=== PATIENT | female | born 1995 | race Caucasian/White ===

== ENCOUNTER 2024-11-22 12:08 | Inpatient (IN) ==
--- NOTE | 2024-11-22 13:32 | Emergency Department Note ---
Impression & Plan Paranoia, Acute anxiety, Hearing voices ED Provider Note NAME: DARWIN ORTEZ AGE: 29 SEX: F : 1995 ARRIVES VIA: Walk-In INFORMANT: Patient, ED PROVIDER(S): Jenn Dumont MD CHIEF COMPLAINT: Anxiety, paranoia HPI: This is a 29-year-old female presenting for anxiety and paranoia. Patient states that she has been paranoid for some time. She states she does not feel normal. Recently she feels unsafe. She refused to eat or drink if someone else is given it to her. She reports after the bars and blacking out about 2 weeks ago. She notes no persistent alcohol use. She does endorse daily marijuana use since age of 15. She states she smokes high concentration THC. Her mother is with her and states that today she was hearing voices. She almost took her younger sibling, 4 years old, in the car. Family concerned that patient is unsafe at home. Patient herself does not feel safe. She feels very paranoid with everything and everyone. ROS: See above HPI for pertinent positives & negatives. A total of 10 systems reviewed and were otherwise negative. PAST MEDICAL HISTORY: See Below PAST SURGICAL HISTORY: See Below FAMILY HISTORY: See Below SOCIAL HISTORY: See Below HOME MEDICATIONS: See Below ALLERGIES: See Below VITALS: See Below PHYSICAL EXAMINATION: General: Anxious appearing Head: Normocephalic and atraumatic Eyes: Normal inspection, extraocular muscles intact Ear, nose, throat: Normal external exam Neck: Normal range of motion Respiratory: speaking in full sentences, symmetric chest rise, no respiratory distress Cardiovascular: Regular rate/rhythm Extremities: moves all extremities Neuro: The patient awake and alert, appropriately conversive, symmetric faces, no focal deficits Psych: Clear linear thought process, paranoia, emotionally labile MEDICAL DECISION MAKING: This is a 29-year-old female sent for anxiety/paranoia. Patient does exhibit signs of paranoia, she is now hearing voices/screaming. She states she is scared. She wants inpatient treatment. She has no SI or HI at this time. She does smoke marijuana daily for multiple years. Could contribute to paranoia and or schizophrenia risk - Bloodwork is reviewed showing no significant leukocytosis, anemia, electrolyte or creatinine abnormality -Urinalysis does not resemble UTI -Patient currently being referred to psychiatric unit here. -Patient care sent oncoming physician, Dr. Davis pending bed search Differential diagnosis: Paranoia, schizophrenia, marijuana use disorder, bipolar disorder Independent History obtained from: Mother Diagnostics interpreted by me: ECG: None Cardiac Monitoring: An order was placed for continuous cardiac monitoring. The monitor shows a rate of 64 with sinus rhythm. Past Med/Surg History Problem List (Updated 11/22/24 @ 15:30 by Jenn Dumont MD) Hearing voices (Acute) Acute anxiety (Acute) Paranoia (Acute) Social History Smoking Status: Never smoker Feels Safe at Home: Yes Gender Identity: Female Results & Data (ED) Vital Signs Vital Signs - 24 hr 11/22/24 12:10 11/22/24 14:39 Temperature 36.7 C Temperature Source Temporal Artery Scan Pulse Rate 94 H Pulse Rate [Finger] 64 Respiratory Rate 20 18 Respiratory Effort / Characteristics Non-Labored Spontaneous Non-Labored Spontaneous Respiratory Depth Normal Normal Respiratory Pattern Regular Blood Pressure 127/86 Blood Pressure [Right Arm] 108/75 Blood Pressure Mean 99 Blood Pressure Mean [Right Arm] 86 Pulse Oximetry 99 98 Oxygen Delivery Method Room Air Room Air Sepsis Recent Fever Within 48 Hours No Sepsis New/Unexplained Change in Mental Status N/A Sepsis Action Taken by Nursing No Action Required Laboratory Data 11/22/24 13:11 11/22/24 13:11 Lab Results 11/22/24 Range/Units 13:11 WBC 7.74 (4.8-10.8) K/ul RBC 4.38 (4.20-5.40) M/uL Hgb 12.6 (12.0-16.0) g/dl Hct 38.0 (37.0-47.0) % MCV 86.8 (80.0-100.0) fL MCH 28.8 (25.0-34.0) pg MCHC 33.2 (32.0-36.0) g/dL RDW Std Deviation 45.8 (36.4-46.3) fL RDW Coeff of Gloria 14.4 (11.5-14.5) % Plt Count 394 (130-400) K/uL MPV 10.0 (9.4-12.4) fL Immature Gran % (Auto) 0.4 % Neut % (Auto) 69.8 % Lymph % (Auto) 20.3 % [place] % (Auto) 8.4 % Eos % (Auto) 0.3 % Baso % (Auto) 0.8 % Neut # (Auto) 5.41 (1.40-6.50) K/uL Lymph # (Auto) 1.57 (1.20-3.40) K/uL [place] # (Auto) 0.65 H (0.11-0.59) K/uL Eos # (Auto) 0.02 (0.00-0.50) K/uL Baso # (Auto) 0.06 (0.00-0.20) K/uL Immature Gran # (Auto) 0.03 (0.01-0.20) K/uL Sodium 140 (136-145) mmol/L Potassium 3.7 (3.5-5.1) mmol/L Chloride 106 (98-107) mmol/L Carbon Dioxide 23 (21-32) mmol/L Anion Gap 11 (3-11) BUN 11 (6-23) mg/dl Creatinine 0.72 (0.6-1.2) mg/dl Est Cr Clr Drug Dosing 74.4 ml/min eGFR 116.72 BUN/Creatinine Ratio 15.3 (10-20) Glucose 77 (70-99(Fasting)) mg/dl Calcium 9.8 (8.6-10.3) mg/dl Total Bilirubin 0.8 (0.2-1.0) mg/dl AST 13 (13-39) U/L ALT 7 (7-52) U/L Alkaline Phosphatase 23 L (34-104) U/L Total Protein 7.9 (6.0-8.3) gm/dl Albumin 4.7 (3.4-5.0) gm/dl Globulin 3.2 (2.5-4.0) gm/dl Albumin/Globulin Ratio 1.5 (0.9-2) TSH 1.158 (0.300-4.500) uIu/ml Urine Color Dark Yellow Urine Appearance Clear (Clear) Urine pH 6.0 (4.5-7.5) Ur Specific [place] 1.037 H (1.000-1.030) Urine Protein 1+ H (Negative) Urine Glucose (UA) Negative (Negative) Urine Ketones 4+ H (Negative) Urine Blood Negative (Negative) Urine Nitrite Negative (Negative) Urine Bilirubin Negative (Negative) Urine Urobilinogen Negative (Negative) Ur Leukocyte Esterase Negative (Negative) Urine WBC (Auto) 0-5 (0-5) /hpf Urine RBC (Auto) 0-2 (0-2) /hpf U Hyaline Cast (Auto) 3-5 H (0-2) /lpf U Epithel Cells (Auto) 3-5 H (0-2) /hpf Urine Bacteria (Auto) None Seen (None Seen) Urine Mucus Present A (None Prsent) Urine Test Negative (Negative) Salicylates < 3.0 L (3.0-30) mg/dl Urine Opiates Screen Neg (Neg) Ur Methadone, Qual Neg (Neg) Urine Fentanyl Screen Neg (Neg) Acetaminophen < 3 L (10-30) ug/ml Urine Barbiturates Neg (Neg) Ur Phencyclidine (PCP) Neg (Neg) U Amphetamin/Meth Scrn Neg (Neg) MDMA (Ecstasy) Screen Neg (Neg) U Benzodiazepines Scrn Neg (Neg) Ur Cocaine Metabolite Neg (Neg) U Marijuana (THC) Screen Pos H (Neg) Ethyl Alcohol mg/dL < 10.0 (<10.0) mg/dl SARS-CoV-2, RNA, NAAT NEGATIVE (NEGATIVE) Administered Medications Nicotine (Nicotine 21 Mg/24 Hr Tdsy) 1 patch TD QAM AURELIO Stop: 12/22/24 14:29 Last Admin: 11/22/24 14:38 Dose: 1 patch Documented By: CAP Discharge Plan Visit Data Chief Complaint: Anxiety Stated Complaint: PSYCH ED Provider: Jenn Dumont Discharge Problem: Paranoia, Acute anxiety, Hearing voices Condition: Fair Forms Stand Alone Forms: My [facility], Suicide Prevention Resources Referrals Referrals: PCP,NO [Primary Care Provider] -
[2024-11-22 13:38] LABS: Basophils # (auto) 0.06 K/uL (0.00-0.20); Basophils % (auto) 0.8 %; Eosinophils # (auto) 0.02 K/uL (0.00-0.50); Eosinophils % (auto) 0.3 %; Hemoglobin 12.6 g/dl (12.0-16.0); Immature Granulocytes # (auto) 0.03 K/uL (0.01-0.20); Immature Granulocytes % (auto) 0.4 %; Lymphocytes # (auto) 1.57 K/uL (1.20-3.40); Lymphocytes % (auto) 20.3 %; Mean Corpuscular Hemoglobin 28.8 pg (25.0-34.0); Mean Corpuscular Hgb Conc 33.2 g/dL (32.0-36.0); Mean Corpuscular Volume 86.8 fL (80.0-100.0); Monocytes # (auto) 0.65 K/uL (0.11-0.59); Monocytes % (auto) 8.4 %; Neutrophils # (auto) 5.41 K/uL (1.40-6.50); Neutrophils % (auto) 69.8 %; Platelet Count 394 K/uL (130-400); RDW Coefficient of Variation 14.4 % (11.5-14.5); RDW Standard Deviation 45.8 fL (36.4-46.3); Red Blood Count 4.38 M/uL (4.20-5.40); White Blood Count 7.74 K/ul (4.8-10.8)
[2024-11-22 13:51] LABS: Acetaminophen < 3 ug/ml (10-30); Salicylate < 3.0 mg/dl (3.0-30)
[2024-11-22 14:03] LABS: Albumin Globulin Ratio 1.5 (0.9-2); Albumin Level 4.7 gm/dl (3.4-5.0); BUN Creatinine Ratio 15.3 (10-20); Bilirubin,Total 0.8 mg/dl (0.2-1.0); Calcium 9.8 mg/dl (8.6-10.3); Creatinine Clr Calc Pharmacy 74.4 ml/min; Globulin 3.2 gm/dl (2.5-4.0); Potassium 3.7 mmol/L (3.5-5.1); Total Protein 7.9 gm/dl (6.0-8.3)
[2024-11-22 14:09] LABS: Appearance Urine Clear (Clear); Bacteria Urine Automated None Seen (None Seen); Bilirubin Urine Negative (Negative); Blood Urine Negative (Negative); Color Urine Dark Yellow; Glucose Urine UA Negative (Negative); Ketones Urine 4+ (Negative); Leukocyte Esterase Urine Negative (Negative); Mucus Urine Present (None Prsent); Nitrite Urine Negative (Negative); Protein Urine 1+ (Negative); RBC Urine Automated 0-2 /hpf (0-2); Specific Gravity Urine 1.037 (1.000-1.030); Urobilinogen Urine Negative (Negative); WBC Urine Automated 0-5 /hpf (0-5)
[2024-11-22 14:19] LABS: Thyroid Stimulating Hormone 1.158 uIu/ml (0.300-4.500)
[2024-11-22 14:26] LABS: Amphetamines+Metham, Urine Neg (Neg); Barbiturates, Urine Neg (Neg); Benzodiazepine, Urine Neg (Neg); Cocaine, Urine Neg (Neg); Fentanyl, Urine Neg (Neg); MDMA (Ecstacy), Urine Neg (Neg); Marijuana, Urine Pos (Neg); Methadone, Urine Neg (Neg); Opiate, Urine Neg (Neg); Phencyclidine, Urine Neg (Neg)
[2024-11-22] MEDS: NICOTINE 21 MG/24 HR TDSY TD SCH (14:38)
[2024-11-22 14:55] LABS: Pregnancy Test, Urine Negative (Negative)
[2024-11-22] MEDS ORDERED: SODIUM CHLORIDE 0.65% NA SOLN 45 ML (OCEAN) PRN (15:50)
[2024-11-22] MEDS ORDERED: hydrOXYzine HCl 25 MG TAB PO PRN (15:50)
[2024-11-22] MEDS ORDERED: NICOTINE POLACRILEX 2 MG GUM MT PRN (15:50)
[2024-11-22] MEDS ORDERED: MAGNESIUM HYDROXIDE SUSP 30 ML UDC PO PRN (15:50)
[2024-11-22] MEDS ORDERED: ALUMINUM/MAGNESIUM SUSP 30 ML UDC PO PRN (15:50)
[2024-11-22] MEDS ORDERED: ACETAMINOPHEN 325 MG TAB PO PRN (15:50)
[2024-11-22] MEDS ORDERED: BISMUTH SUBSALICYLATE 262 MG CHEW PO PRN (15:50)
--- NOTE | 2024-11-22 16:06 | Emergency Department Note ---
ED Visit Note 1515: Signout from Dr. Dumont. 29-year-old female 201 paranoid hearing voices marijuana abuse. Awaiting psychiatric evaluation and placement. 1606: Patient excepted to 3 S. .
[2024-11-22] MEDS ORDERED: OLANZAPINE 2.5 MG TAB PO PRN (16:56)
[2024-11-22] MEDS: OLANZapine 5 MG TABLET PO SCH (21:10)
[2024-11-23] MEDS: hydrOXYzine HCl 25 MG TAB PO PRN (06:44)
[2024-11-23] MEDS: NICOTINE 14 MG/24 HR PATCH TD SCH (08:23)
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
[2024-11-23] MEDS: SERTRALINE HCL 50 MG TABLET PO SCH (11:58)
[2024-11-23] MEDS: NICOTINE 7 MG/24 HR TDSY TD SCH (14:32)
[2024-11-23] MEDS: OLANZapine 10 MG TAB PO SCH (20:50)
[2024-11-24 07:31] LABS: Chol HDL Ratio 3.2 (0-5)
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
[2024-11-24 09:21] LABS: Estimated Average Glucose 100 mg/dl; Hemoglobin A1C 5.1 % (4.5-5.6)
[2024-11-24] MEDS: OLANZapine 5 MG TABLET PO SCH (20:33)
[2024-11-25] MEDS: CHOLECALCIFEROL 25 MCG (1000 UNITS) TAB PO SCH (08:38)
--- NOTE | 2024-11-25 08:59 | Psychiatric Progress Note ---
Date of Service November 25, 2024 Impression / Recommendations Impression Diagnostically consistent with unspecified psychosis with differential including acute trauma response/PTSD with psychotic features, severe insomnia, generalized anxiety disorder and substance use/substance-induced from cannabis in the context of multiple traumatic experiences. Anila or mixed mood episode was considered given her poor sleep and report of impulsively moving across the country or between locations however this seems to be driven by paranoia and there are no other noted symptoms consistent with anila nor is her presentation today consistent with a anila or mixed episode. Cannabis use certainly could be a contributing factor though sounds like some of the symptoms were present even before her cannabis use increased. She signed a 72 hour notice which expires 11/27 @1110. A: Significant improvement today after taking olanzapine last evening, timing and quick response to medications suggest of trauma vs substance-induced symptoms. No evidence for paranoia today, did yoga with a peer and eating more food. 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 She signed a 72 hour notice and does not meet 302 criteria so plan for discharge tomorrow after support meeting and once aftercare has been established. She is agreeable with this. Motivational interviewing done regarding her cannabis use, she is motivated to avoid use after discharge. MNPR due to recent paranoia and psychosis, especially at night, and need to promote sleep by minimizing nighttime disruptions Overall, I spent a total of 40 minutes on this case including meeting with the patient, reviewing the chart, nursing report, multidisciplinary team meeting, orders, and documentation. (1) Unspecified psychosis not due to a substance or known physiological condition: (2) Paranoia: (3) Acute anxiety: (4) Cannabis use disorder, moderate, dependence: (5) Acute stress reaction: (6) Post traumatic stress disorder (PTSD): (7) Trauma and stressor-related disorder: Plan 11/25/2024: -Continue current medications and tx plan 11/24/2024: -Decrease olanzapine to 5mg HS to encourage adherence -Start Vit D supplementation 11/23/2024: The patient was admitted to the [facility]) on q15 min checks (behavioral with suicide precautions) for safety. The patient will participate in group, recreational, and milieu therapies and will be offere d additional individual and family sessions as clinically appropriate. -increase to olanzapine 10mg HS -start sertraline 50mg daily -fasting lipid panel and HbA1c, Vit D -STD testing: RPR, HIV and Urine G/C testing -SW to assist with disposition planning: psychiatry, Magician/Illusionist, and therapy and CM referrals Inventory Assets Strengths: supportive relationships, willing to get treatment Needs: safety and stabilization, medication adjustment, additional coping skills, increased outpatient services Suicide Risk Level Suicide Risk Level: Low (q15 min observation checks) (denies SI and future- oriented, feels safe ) Risk Factors Assessment Male: No : Yes Do You Have Access To A Gun?: No Health Problems: No Mental Health Diagnoses: Yes Substance Use Disorders: Yes Previous Attempt: No Family History of Suicide: No Previous Psychiatric Hospitalization: No Hopelessness: No Protective Factors Assessment Employed: No Stable Relationships: Yes Supportive Family: Yes Interval History Identifying Information DARWIN ORTEZ is a 29-year-old woman who currently lives in [place] with her mother and step-father, has a history of depression and anxiety, and was admitted on 11/22/24 15:50 on a 201 voluntary commitment for increased paranoia and psychosis with poor intake and weight loss. Chief Complaint "I feel better on the medicine". Review of Systems Sleep Information Total Hours of Sleep: 6.5 Meal Information Percent Meal Consumed - Breakfast: 100 Percent Meal Consumed - Lunch: 25 Percent Meal Consumed - Dinner: 25 Nutrition Comment: Subjective Subjective Patient was seen & assessed and interval progress reviewed with nursing and social work. Attended groups, did take olanzapine last evening. She did eventually sign an USHA for her mother. She signed a 72 hour notice which expires 11/27 @1110. Today ate most of her breakfast. Has been active on the unit and attending groups. Tells me she feels the olanzapine does help and that she feels a lot "calmer" on it and slept well last night without any nightmares. She is motivated to stop using cannabis moving forward plans to not restart this. Validated this choice. 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 Denies any medication side effects, continues to prefer to stay at low dose of olanzapine. Physical Exam Psychiatric Orientation: alert and oriented x 3 Apperance: appropriately dressed and appropriately groomed Eye Contact: good eye contact Motor Behavior: no abnormal motor movements Speech: normal rate/rhythm/volume of speech Affect: + anxious affect Mood: + anxious mood Thought Process: goal directed thought process Thought Content: reality based without delusions Suicidal Thoughts: denies suicidal thoughts, denies suicidal plan and denies suicidal intent Homicidal Thoughts: denies homicidal thoughts Hallucinations: no auditory hallucinations and no visual hallucinations Cognition: recent memory grossly intact, remote memory grossly intact, attention grossly intact and language grossly intact Estimated Intelligence: consistent with education level Insight: + fair insight Judgment: + fair judgement Vital Signs (Past 24 Hours) Last Vital Signs Temp 36.7 C 11/25/24 06:38 Pulse 81 11/25/24 06:38 Resp 20 11/25/24 06:38 BP 119/83 11/25/24 06:38 Pulse Ox 97 11/25/24 06:38 O2 Del Method Room Air 11/25/24 06:38 Results & Data ([facility]) Laboratory Results Laboratory Results - last 24 hr 11/23/24 11/24/24 Unknown 06:45 Estimat Average Glucose 100 Hemoglobin A1c 5.1 Treponema pallidum Ab Negative N.gonorrhoeae RNA Not Detected Current Inpatient Medications Current Inpatient Medications: Current Inpatient Medications Acetaminophen (Acetaminophen 325 Mg Tab) 650 mg PO Q4H PRN PRN Reason: Headache or Minor Fever Stop: 12/22/24 15:49 Al Hydrox/Mg Hydrox/Simethicone (Aluminum/Magnesium Susp 30 Ml Udc) 30 ml PO Q4H PRN PRN Reason: GI Upset Stop: 12/22/24 15:49 Bismuth Subsalicylate (Bismuth Subsalicylate 262 Mg Chew) 2 tab PO Q30M PRN PRN Reason: Loose Stool/Diarrhea Stop: 12/22/24 15:49 Hydroxyzine HCl (Hydroxyzine Hcl 25 Mg Tab) 50 mg PO HSZ PRN PRN Reason: Insomnia Stop: 12/22/24 15:49 Hydroxyzine HCl (Hydroxyzine Hcl 25 Mg Tab) 25 mg PO Q4H PRN PRN Reason: Anxiety Stop: 12/22/24 15:49 Last Admin: 11/23/24 06:44 Dose: 25 mg Magnesium Hydroxide (Magnesium Hydroxide Susp 30 Ml Udc) 30 ml PO DAILY PRN PRN Reason: Constipation Stop: 12/22/24 15:49 Miscellaneous (Remove Nicoderm Patch) 1 each N/A DAILY@0859 [facility] Stop: 12/23/24 13:13 Last Admin: 11/25/24 08:38 Dose: 1 each Nicotine (Nicotine 7 Mg/24 Hr Tdsy) 1 patch TD QAM [facility] Stop: 12/23/24 13:14 Last Admin: 11/25/24 08:38 Dose: 1 patch Nicotine Polacrilex (Nicotine Polacrilex 2 Mg Gum) 2 piece MT PRN PRN PRN Reason: Nicotine Withdrawal Symptoms Stop: 12/22/24 15:49 Olanzapine (Olanzapine 2.5 Mg Tab) 2.5 mg PO BID PRN PRN Reason: Agitation Stop: 12/22/24 20:59 Olanzapine (Olanzapine 5 Mg Tablet) 5 mg PO HS [facility] Stop: 12/24/24 21:59 Last Admin: 11/24/24 20:33 Dose: 5 mg Sertraline HCl (Sertraline Hcl 50 Mg Tablet) 50 mg PO QAM [facility] Stop: 12/23/24 11:14 Last Admin: 11/25/24 08:38 Dose: 50 mg Sodium Chloride (Sodium Chloride 0.65% Na Soln 45 Ml ([place])) 1 - 2 sprays NA PRN PRN PRN Reason: Nasal Dryness/Congestion Stop: 12/22/24 15:49 Vitamin D (Cholecalciferol 25 Mcg (1000 Units) Tab) 25 mcg PO QAM [facility] Stop: 12/25/24 08:59 Last Admin: 11/25/24 08:38 Dose: 25 mcg Mental Health & Subst Abuse Tx Therapist Name of Therapist: N/A Benefits Assistant Name of Benefits Assistant: N/A
[2024-11-25 16:12] LABS: Marijuana Quant, GCMS Urine >5000 ng/mL (<5)
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
[2024-11-26 11:08] LABS: HIV 1 RNA PCR Copies/ML NOT DETECTED copies/mL (NOT DETECTED); HIV-1 RNA Log Copies/mL NOT DETECTED (NOT DETECTED)
== END 2024-11-26 10:37 | disposition home or self-care (01) | DRG 885 ==
LOC: ED 12:08 → 3S 15:50